=== PATIENT | female | born 1955 | race Caucasian/White ===

== ENCOUNTER 2024-07-13 07:31 | Day surgery (SDC) | payer OTHER ==
[~2024-07-13] VITALS: Ht 177.8 cm; Wt 68.0 kg
[2024-07-13] MEDS ORDERED: fentaNYL citrate 0.05 MG/ML VIAL ONE (08:46)
[2024-07-13] MEDS: fentaNYL citrate 0.05 MG/ML VIAL IVP ONE (09:55)
[2024-07-13] MEDS ORDERED: MIDAZOLAM 2 MG/2 ML VIAL ONE (10:19)
[2024-07-13] MEDS: MIDAZOLAM 2 MG/2 ML VIAL IVP ONE (10:20)
== END 2024-07-13 11:57 | disposition home or self-care (01) ==
LOC: MDS 07:31 → MMU 07:32 → MDS 11:57
PROVIDERS: ATTEND Internal Medicine Gastroenterology
DX: Z12.11 Encounter for screening for malignant neoplasm of colon (principal); D12.2 Benign neoplasm of ascending colon; D12.4 Benign neoplasm of descending colon; D12.3 Benign neoplasm of transverse colon; K63.89 Other specified diseases of intestine
CPT/HCPCS: 45385; J2250; J3010